=== PATIENT | male | born 1990 | race Two or more races ===

== ENCOUNTER 2016-08-25 22:09 | Emergency (ER) | payer OTHER ==
[~2016-08-25] VITALS: Ht 175.3 cm; Wt 70.3 kg
[2016-08-25 22:56] VITALS: BP 148/98
[2016-08-25 23:55] LABS: KETONES,URINE NEGATIVE (NEGATIVE); LEUKOCYTE ESTERASE ,URINE NEGATIVE (NEGATIVE)
[2016-08-26] MEDS ORDERED: CEFTRIAXONE 500 MG VIAL IM ONE
[2016-08-26] MEDS ORDERED: METRONIDAZOLE 500 MG TABLET PO ONE
[2016-08-26] MEDS ORDERED: AZITHROMYCIN 250 MG TABLET PO ONE
[2016-08-26 00:08] LABS: ADD UA MICROSCOPIC YES
[2016-08-26] MEDS ORDERED: METRONIDAZOLE 500 MG TABLET ONE (00:09)
[2016-08-26] MEDS ORDERED: AZITHROMYCIN 250 MG TABLET ONE (00:09)
[2016-08-26] MEDS ORDERED: CEFTRIAXONE 500 MG VIAL ONE (00:10)
[2016-08-26] MEDS ORDERED: LIDOCAINE /MPF 1% VIAL 5 ML VIAL ONE (00:10)
[2016-08-26 00:11] LABS: ADD URINE CULTURE NO; RBC,URINE 0-3 /HPF (0-2); WBC,URINE 0-5 /HPF (0-3)
== END 2016-08-26 00:22 | disposition home or self-care (01) ==
LOC: ER 22:11
DX: Z20.2 Contact with and (suspected) exposure to infections with a predominantly sexual mode of transmission (principal)
CPT/HCPCS: 81001; 87491; 87591; 96372; 99284; A4606; J0696; J3490; Z7610; 81000-TC